=== PATIENT | female | born 1950 | race Two or more races ===

== ENCOUNTER 2024-08-24 22:44 | Emergency (ER) | payer MEDICARE, MEDICAID ==
[~2024-08-24] VITALS: Ht 165.1 cm; Wt 50.0 kg
[2024-08-24 22:46] VITALS: BP 115/66; PULSE 91; RESP 24; TEMP 97.9; O2SAT 98
[2024-08-25] MEDS: KETOROLAC 30MG/ML VIAL IM ONE (03:02)
== END 2024-08-25 03:03 | disposition home or self-care (01) ==
LOC: ER 22:44
DX: F10.129 Alcohol abuse with intoxication, unspecified (principal); I10 Essential (primary) hypertension; F43.0 Acute stress reaction; Z79.899 Other long term (current) drug therapy; Y90.9 Presence of alcohol in blood, level not specified
CPT/HCPCS: 99283; 71045; 96372; J1885